=== PATIENT | male | born 1975 | race Caucasian/White ===

== ENCOUNTER 2021-01-18 09:17 | Emergency (ER) | payer SELFPAY ==
[~2021-01-18] VITALS: Ht 175.3 cm; Wt 81.0 kg
[2021-01-18] MEDS ORDERED: MORPHINE SULFATE 4 MG/ML CPJ (NOT FOR IM USE) IV STA (09:48)
[2021-01-18] MEDS ORDERED: ONDANSETRON HCL 4MG/2ML INJ IV STA (09:48)
[2021-01-18] MEDS ORDERED: FAMOTIDINE 20MG/2ML VIAL IV STA (09:48)
[2021-01-18] MEDS ORDERED: SODIUM CHLORIDE 0.9% 1,000 ML IV ONE (10:00)
[2021-01-18 10:11] LABS: EOSINOPHILS % 0.9 % (0.0-5.0); HEMATOCRIT. 48.8 % (42.0-52.0); HEMOGLOBIN. 16.9 g/dL (14.0-18.0); LYMPHOCYTES % 23.9 % (20.0-50.0); MEAN CORPUSCULAR HEMOGLOBIN 31.2 pg (28.0-32.0); MEAN CORPUSCULAR VOLUME 89.9 fL (80.0-94.0); MEAN PLATELET VOLUME 7.7 fl (7.4-10.4); MONOCYTES % 6.9 % (2.0-8.0); NEUTROPHILS % 67.3 % (40.0-76.0); PLATELET 288 x1000/uL (130-400); RED BLOOD CELL COUNT 5.43 mill/uL (4.7-6.1); RED CELL DISTRIBUTION WIDTH 13.5 % (11.6-14.6)
[2021-01-18 10:17] LABS: CHLORIDE 105 mEq/L (98-107)
[2021-01-18 10:21] LABS: PROTHROMBIN TIME 10.5 sec (9.6-11.0)
[2021-01-18] MEDS ORDERED: MORPHINE SULFATE 2 MG/ML CPJ (NOT FOR IM USE) IV NR (10:30)
[2021-01-18] MEDS ORDERED: ONDANSETRON HCL 4MG/2ML INJ IV ONE (12:15)
[2021-01-18] MEDS ORDERED: CIPR-263 MT (13:45)
[2021-01-18] MEDS ORDERED: ONDA4TAB5 MT (13:46)
[2021-01-18 14:00] VITALS: BP 131/84
== END 2021-01-18 14:19 | disposition home or self-care (01) ==
LOC: ER 09:17
DX: K52.9 Noninfective gastroenteritis and colitis, unspecified (principal); F17.210 Nicotine dependence, cigarettes, uncomplicated; Z98.890 Other specified postprocedural states
CPT/HCPCS: 36415; 80053; 83690; 85025; 85610; 96361; 96374; 96375; 96376; 99284; J2270; J2405; J3490; J7030; Z7610